=== PATIENT | female | born 2000 | race Caucasian/White ===

== ENCOUNTER 2021-12-21 10:00 | Outpatient (CLI) | payer BC, SELFPAY ==
[2021-12-21 11:38] LABS: Alanine Aminotransferase 14 U/L (4-35); Albumin Level 4.7 g/dL (3.5-5.1); Alkaline Phosphatase 66 U/L (38-126); Anion Gap 5 mmol/L (8-16); Aspartate Amino Transferase 25 U/L (14-36); Bilirubin,Total 0.4 mg/dL (0.2-1.3); Blood Urea Nitrogen 9 mg/dL (7-17); Calcium 9.4 mg/dL (8.4-10.2); Carbon Dioxide 29 mmol/L (22-30); Chloride 105 mmol/L (98-107); Cholesterol 163 mg/dL (0-200); Estimated Glomerular Filt Rate > 60; Glucose 90 mg/dL (65-110); HDL Direct 51 mg/dL; Potassium 4.1 mmol/L (3.4-5.0); Sodium 139 mmol/L (137-145); Triglycerides 87 mg/dL (<150)
[2021-12-21 11:48] LABS: Hemoglobin A1C 5.1 % (<5.7)
[2021-12-21 11:49] LABS: LDL Cholesterol Direct 76 mg/dL
[2021-12-21 12:06] LABS: Thyroid Stimulating Hormone 0.855 uIU/mL (0.465-4.680)
[2021-12-21 12:15] LABS: Vitamin D 25 Hydroxy 21.3 ng/mL
== END 2021-12-21 10:01 | disposition home or self-care (01) ==
LOC: ANHLAB 10:04
PROVIDERS: PCP Nurse Practitioner; Visit Provider Nurse Practitioner
DX: Z13.1 Encounter for screening for diabetes mellitus (principal); Z13.6 Encounter for screening for cardiovascular disorders; F32.A Depression, unspecified; Z13.220 Encounter for screening for lipoid disorders; Z13.21 Encounter for screening for nutritional disorder
CPT/HCPCS: 36415; 80053; 80061; 82306; 83036; 84443

== ENCOUNTER 2024-09-01 12:49 | Emergency (ER) | payer OTHER, SELFPAY ==
[2024-09-01 13:10] VITALS: BP 110/67; PULSE 95; RESP 16; TEMP 37.1; O2SAT 99
--- NOTE | 2024-09-01 13:34 | ED.URI ---
HPI - URI/Sore Throat General Chief Complaint: Upper Respiratory Infection Stated Complaint: work note congested,sore throat Time Seen by Provider: 09/01/24 13:35 Source: patient Mode of arrival: ambulatory Limitations: no limitations History of Present Illness HPI Narrative: 23-year-old female presents with complaint of nasal congestion, sore throat, cough, fatigue for 1 day. Afebrile. Taking [id number] DayQuil NyQuil to treat symptoms. Patient here for work note. No chest pain or shortness of breath. Denies nausea vomiting diarrhea. Would like COVID testing. All systems reviewed and negative except as noted above. Related Data Allergies Allergy/AdvReac Type Severity Reaction Status Date / Time No Known Allergies Allergy Verified 09/01/24 12:56 Review of Systems Review of Systems: CONSTITUTIONAL: Denies fever, chills, or sweats. reports fatigue. EYES: Denies visual changes, redness, or discharge. ENT: Reports rhinorrhea, congestion, sore throat. Denies otalgia. CARDIOVASCULAR: Denies chest pain, palpitations, or edema. RESPIRATORY: Denies cough or dyspnea. GASTROINTESTINAL: Denies abdominal pain, nausea, vomiting, or diarrhea. GENITOURINARY: Denies dysuria or hematuria. SKIN: Denies rash or itching. MUSCULOSKELETAL: Denies back pain, joint pain, or myalgia. NEUROLOGIC: Denies headache, numbness, or weakness. PSYCHIATRIC: Denies anxiety or depression. All other systems reviewed are negative, except as documented in HPI. [facility] Past Medical History Medical History (Updated 09/01/24 @ 13:39 by Lauryn Arthur NP) Anxiety Asthma Depression Surgical History Surgical History (Updated 12/20/21 @ 14:20 by RANJITH Delcid) Hx of cosmetic plastic surgery Hx of tracheostomy Family History Family History Unknown Alcoholism Anxiety Depression Diabetes mellitus Hypertension Acute myocardial infarction Social History Social History Smoking status: Never smoker Second hand tobacco smoke exposure: No Alcohol intake: never Substance use: never Substance use type: does not use Comments At time of signature, agree with nursing past medical, surgical, social and family history. There is no relevant family history pertinent to the presenting complaint. Exam Narrative: GENERAL: This is a well-nourished, well-developed patient, ill-appearing but no acute distress HEAD: normocephalic, atraumatic. EYES: PERRL. Sclera clear/white. Vision is grossly intact. EARS: External ears normal, auditory canals clear and without drainage, TMs normal without perforation. Hearing grossly intact. NOSE: External nose normal with Clear nasal drainage, mild congestion THROAT: Mucous membranes moist, mild erythema without swelling or exudates NECK: Neck supple, non-tender without lymphadenopathy, masses or thyromegaly. CARDIOVASCULAR: Regular rate and rhythm without murmurs, gallops, or rubs. RESPIRATORY: Clear to auscultation. Breath sounds equal bilaterally. No wheezes, rales, or rhonchi. SKIN: warm, Dry, intact with no suspicious lesions or rash, good texture and turgor. NEURO: awake, alert, and oriented to person, place and time. There were no obvious focal neurologic abnormalities. EXTREMITIES: No joint tenderness, effusion, or edema noted. Course Course Level of Care: Express Care Visit Vital Signs Vital signs: Vital Signs Temperature 37.1 C 09/01/24 13:10 Pulse Rate 95 09/01/24 13:10 Respiratory Rate 16 09/01/24 13:10 Blood Pressure 110/67 09/01/24 13:10 Pulse Oximetry 99 09/01/24 13:10 Oxygen Delivery Room Air 09/01/24 13:10 Temperature 37.1 C 09/01/24 13:10 Pulse Rate 95 09/01/24 13:10 Respiratory Rate 16 09/01/24 13:10 Blood Pressure 110/67 09/01/24 13:10 Pulse Oximetry 99 09/01/24 13:10 Oxygen Delivery Room Air
[2024-09-01 13:52] LABS: EDCOVIDSCREEN Negative (Negative)
== END 2024-09-01 13:42 | disposition home or self-care (01) ==
PROVIDERS: Emergency Provider Nurse Practitioner Family
DX: J06.9 Acute upper respiratory infection, unspecified (principal); Z20.822 Contact with and (suspected) exposure to COVID-19; J45.909 Unspecified asthma, uncomplicated
CPT/HCPCS: 87426; 99212; G0463